=== PATIENT | male | born 1950 | race Caucasian/White ===

== ENCOUNTER 2017-10-09 12:26 | Inpatient (IN) | payer MEDICARE, MEDICAID ==
--- NOTE | 2017-10-09 12:33 | ED Physician Chart ---
ED Chief Complaint/HPI - Patient Information Date Seen:: 10/09/17 Time Seen:: 12:32 Chief Complaint:: SHORT OF BREATH WITH COUGH 3 DAYS History of Present Illness:: THIS 67-YEAR-OLD MALE HAD ONSET OF RESPIRATORY DISTRESS APPROXIMATELY 3 DAYS AGO WHICH HAS PROGRESSIVELY BECOME MORE SEVERE. PATIENT HAS A PRIOR HISTORY OF COPD ONE PRIOR EPISODE OF HOSPITALIZATION FOR THE SAME PROBLEM. THE PATIENT HAS A COUGH WHICH IS PRODUCTIVE FOR SOME SPUTUM. HE HAS NO HISTORY OF HEMOPTYSIS. HE'S HAD NO RECENT SURGERY AND NO HISTORY OF CANCER. HE DENIES ANY CHILLS BUT MAY HAVE HAD A MILD FEVER WITHIN THE PAST 3 DAYS. NO EPISODES OF DIAPHORESIS. NO ASSOCIATED CHEST PAIN. THE PATIENT HAD NOT NOTED IT BUT IS HAD SOME SWELLING IN THE RIGHT LOWER EXTREMITY. ED Review of Systems - Review of Systems General/Constitutional: No chills, Other (uncertain if the patient has had any recent fever.) Skin: No skin lesions, No rash, No bruising Head: No headache, No light-headedness Eyes: No loss of vision, No pain, No diplopia ENT: No earache, No nasal drainage, No sore throat Neck: Neck pain, No thyromegaly, No stiffness, No mass noted Cardio Vascular: Chest pain, No palpitations, No orthopnea Pulmonary: SOB, Cough, Other (NO HEMOPTYSIS.) GI: No nausea, No vomiting, No diarrhea, No pain, No melena, No constipation, No hematemesis G/U: No dysuria, No frequency, No hematuria Musculoskeletal: No bone or joint pain, No back pain Neurological: No syncope, No weakness, No headache, No seizure, No dizziness, No vertigo ED Past Medical History - Past Medical History Past Medical History: Asthma/COPD, Other (NO history of hypertension, no history of cancer, no history of DVT/PE,) Social History: Smoker (QUIT SMOKING THIS MAY.), No Drug Use, Employment:: A COUPLE OF TIMES PATIENT WORKED A [employer]. Surgical History: Appendectomy, other (PATIENT HAD ACHILLES TENDON REPAIR AFTER JUMPING OUT OF HELICOPTER DURING [place]) Family Medical History - Family Member Mother History Unknown: Yes ED Physical Exam - Physical Examination General/Constitutional: Well-developed, well-nourished, Alert, Non-toxic appearing Other Gen/Cons comments:: MODERATE DISTRESS SECONDARY TO BRONCHOSPASM Head: Atraumatic Eyes: Lids, conjuctiva normal, PERRL, EOMI Skin: Nl inspection, No rash, No skin lesions, No ecchymosis, Well hydrated, No lymphadenopathy Other Skin comments:: ALT TOENAILS WITH FUNGAL INFECTION AND THICKENED NAILS. DRY SKIN PROMINENT OVER THE DISTAL LEFT LOWER EXTREMITY INVOLVING THE ANKLE AND FOOT. ENMT: External ears, nose nl, Oropharynx nl, Tonsils nl Other ENMT comments:: EDENTULOUS Neck: Nontender, Full ROM w/o pain, No JVD (INCREASED EXERTION DUE TO BRONCHOSPASM THROUGHOUT ALL LUNG ALEXANDER. ALSO WITH RIGHT BASILAR RALES.), No nuchal rigidity, No bruit, No mass, No stridor Cardio Vascular: No murmur, gallop, rubs, NL S1 S2, Carotid/Femoral/Distal pulses equal bilaterally Other Cardio Vascular comments:: NO MURMURS GALLOPS OR RUBS WERE APPRECIATED ON AUSCULTATION BUT THIS WAS SOMEWHAT HAMPERED DUE TO NOISY BREATHING IN THE REGION OVER THE HEART. PATIENT WITH GOOD PULSES IN ALL 4 EXTREMITIES.. GI: No tenderness/rebounding/guarding, No organomegaly, No hernia, Normal BS's, Nondistended, No mass/bruits, No McBurney tenderness Other GI comments:: RECTAL EXAM DEFERRED AT MY DISCRETION. : No CVA tenderness (MILD EDEMA IN THE RIGHT LOWER EXTREMITY. NO CALF TENDERNESS. NEGATIVE HOMANS SIGN.) Extremities: Full ROM, normal strength in all extremities Neuro/Psych: Alert/oriented, Normal sensory exam, Normal motor strength, Judgement/insight normal, Mood normal, No focal deficits Misc: Normal back, No paraspinal tenderness Other Misc comments:: NO SPINAL TENDERNESS IN THE THORACIC OR LUMBAR SPINAL AREA. ED Labs/Radiology/EKG Results - Lab Results Results: SINGLE VIEW PA CHEST X-RAY: HEART SIZE UPPER LIMIT OF NORMAL. NO OBVIOUS CHF. NO AREAS OF PULMONARY CONSOLIDATION OR INFILTRATE. NO PNEUMOTHORAX. IMPRESSION : NO ACUTE CARDIOPULMONARY FINDINGS. Laboratory Results - last 24 hr 10/09/17 10/09/17 10/09/17 12:45 12:56 12:56 WBC 14.8 H RBC 3.97 Hgb 11.7 L Hct 35.0 L MCV 88.3 MCH 29.4 MCHC Differential 33.3 RDW 14.4 Plt Count 305 MPV 8.6 Neutrophils % 79.6 Lymphocytes % 10.6 L Monocytes % 8.3 Eosinophils % 0.9 Basophils % 0.6 Specimen Source Arterial Sample Site Right Radial pH 7.44 pCO2 42.0 pO2 83.0 HCO3 28.0 H Base Excess 3.9 H O2 Saturation 97.0 John Test PASS Inspired O2 35 Critical Value PW Sodium Carbon Dioxide 25.9 BUN 15 Creatinine 1.1 Est GFR ( Amer) > 60.0 Est GFR (Non-Af Amer) > 60.0 BUN/Creatinine Ratio 13.6 Glucose 144 H Whole Bld Lactic Acid Calcium 8.8 Total Bilirubin 0.7 AST 17 ALT 8 Alkaline Phosphatase 65 Troponin I B-Natriuretic Peptide Total Protein 6.8 Albumin 3.7 L Globulin 3.1 Albumin/Globulin Ratio 1.2 10/09/17 10/09/17 10/09/17 12:56 12:56 12:56 WBC RBC Hgb Hct MCV MCH MCHC Differential RDW Plt Count MPV Neutrophils % Lymphocytes % Monocytes % Eosinophils % Basophils % Specimen Source Sample Site pH pCO2 pO2 HCO3 Base Excess O2 Saturation John Test Inspired O2 Critical Value Sodium Carbon Dioxide BUN Creatinine Est GFR ( Amer) Est GFR (Non-Af Amer) BUN/Creatinine Ratio Glucose Whole Bld Lactic Acid 1.83 Calcium Total Bilirubin AST ALT Alkaline Phosphatase Troponin I 0.12 H* B-Natriuretic Peptide 482.0 H Total Protein Albumin Globulin Albumin/Globulin Ratio BNP ELEVATED AT 482. TROPONIN ELEVATED AT 0.12 WHITE COUNT ELEVATED AT 14.8 MILDLY ANEMIC AT 11.7 ABGS ON ROOM AIR WITH A PO2 OF 83 WHICH IS MILDLY DEPRESSED CO2 OF 42 WITHIN NORMAL RANGE. PH OF 7.44 WITHIN NORMAL RANGE. ULTRASOUND RIGHT LOWER EXTREMITY NEGATIVE FOR DVT. ED Assessment - Assessment General Assessment: CASE SUMMARY: THIS 67-YEAR-OLD MALE WITH A HISTORY OF COPD PRESENTS WITH A THREE -DAY HISTORY OF INCREASING DIFFICULTY BREATHING. WAS ACCOMPANIED BY A SEMI-DRY COUGH WITHOUT ASSOCIATED HEMOPTYSIS, CHILLS OR DIAPHORESIS. HE WAS INITIALLY TREATED WITH A COMBINATION OF NEBULIZED ALBUTEROL AND ATROVENT WITH MINIMAL IF ANY IMPROVEMENT. HE WAS SUBSEQUENTLY TREATED WITH SOLU-MEDROL AND PLACED ON BIPAP. HE IS BEING ADMINISTERED A SECOND COURSE OF THE ALBUTEROL/ATROVENT VIA NEBULIZED MIST. CHEST X-RAY SHOWS THE HEART AT THE UPPER LIMIT OF NORMAL IN WITH IN THE BNP IS ELEVATED WITHIN THE 400 RANGE. THE SERUM TROPONIN WAS ALSO MILDLY ELEVATED AT 0.12 AUSCULTATION OF THE HEART WAS DIFFICULT BECAUSE OF NOISY BREATHING. AT THE PRESENT TIME THE PATIENT APPEARS TO HAVE EARLY OR MILD CONGESTIVE FAILURE WITH ASSOCIATED COPD. MDM DDX DIFFICULTY BREATHING: NOT PULMONARY EMBOLUS BASED ON NEGATIVE ULTRASOUND IN THE RIGHT LOWER EXTREMITY. NOT PNEUMOTHORAX BASED ON NEGATIVE CHEST X-RAY. NOT PNEUMONIA BASED ON NEGATIVE CHEST X-RAY AND STABLE VITAL SIGNS. NOT PLEURAL EFFUSIONS DUE TO NORMAL CHEST X-RAY. PATIENT SEEMS TO HAVE A COMBINATION OF COPD EXACERBATION AND EARLY CHF. REEVALUATION: PATIENT STILL ON BIPAP AND IS MOVING AIR SIGNIFICANTLY BETTER THAN ON PAST EXAMINATION. WE'LL PROCEED WITH ADMISSION FOR CONTINUED BIPAP AND REPEAT NEBULIZED ALBUTEROL/ATROVENT IF NEEDED. RE-EVALUATION: BIPAP IN PLACE: PT'S LUNGS MUCH MORE CLEAR WITH RESOLUTION OF THE WHEEZING. MOVING AIR NORMAL - Procedures Informed Consent: Procedure/risk/benefits explained by MD: No Laceration Type:: None ED Septic Shock - . Is Septic Shock (SBP<90, OR Lactate>4 mmol\L) present?: No ED Reassessment (Disposition) - Reassessment Reassessment Condition:: Improved (markedly and) - Diagnosis Diagnosis:: MARKEDLY IMPROVED. COMBINATION OF COPD AND EARLY CHF. - Patient Disposition Discharge/Transfer:: Acute Care w/in this hosp Accepting Physician:: ANDREW AND WILL ADMIT
[2017-10-09] MEDS ORDERED: Albuterol/Ipratropium Neb 3 ML AERS HHN ONE ×4 (12:39→13:56)
[2017-10-09 12:56] LABS: pH 7.44 (7.35-7.45)
[2017-10-09 12:57] LABS: ALLEN TEST PASS
[2017-10-09 13:18] LABS: % BASOPHILS 0.6 % (0.0-2.0); % EOSINOPHILS 0.9 % (0.0-5.0); % LYMPHOCYTES 10.6 % (20.0-50.0); % MONOCYTES 8.3 % (2.0-10.0); % NEUTROPHILS 79.6 % (40.0-80.0); BASOPHILE ABSOLUTE 0.1 Th/cumm (0-0.2); EOSINOPHILE ABSOLUTE 0.1 Th/cmm (0.1-0.4); HEMOGLOBIN 11.7 gm/dL (12-16); LYMPHOCYTE ABSOLUTE 1.6 Th/cmm (1.5-3.0); MEAN CELL VOLUME 88.3 fl (80-99); MEAN CORPUSCULAR HEMOGLOBIN 29.4 pg (27.0-31.0); MEAN CORPUSCULAR HGB CONC 33.3 pg (28.0-36.0); MEAN PLATELET VOLUME 8.6 fl; MONOCYTE ABSOLUTE 1.2 Th/cmm (0.3-1.0); NEUTROPHILE ABSOLUTE 11.8 Th/cmm (1.8-8.0); PLATELET COUNT 305 Th/cmm (150-400); RED BLOOD COUNT 3.97 Mil/cmm (3.80-5.80); RED CELL DISTRIBUTION WIDTH 14.4 % (11.5-20.0)
[2017-10-09 13:19] LABS: WHITE BLOOD COUNT 14.8 Th/cmm (4.8-10.8)
--- NOTE | 2017-10-09 13:44 | Diagnostic Imaging Report ---
Portable chest x-ray HISTORY: Shortness of breath The heart size is difficult to assess with portable technique in a poor inspiration, but appears somewhat generous. No focal pulmonary processes. No hilar or mediastinal abnormalities. IMPRESSION: 1. No acute abnormalities 2. Suggestion of a somewhat generous overall heart size.
[2017-10-09 13:56] LABS: ALB/GLOB RATIO 1.2 (1.0-1.8); ALBUMIN 3.7 gm/dL (4.2-5.5); ALKALINE PHOSPHATASE 65 U/L (34-104); BILIRUBIN,TOTAL 0.7 mg/dL (0.3-1.0); BUN - UREA NITROGEN 15 mg/dL (7-25); CALCIUM SERUM 8.8 mg/dL (8.6-10.3); CARBON DIOXIDE 25.9 mEq/L (21.0-31.0); CREATININE - SERUM 1.1 mg/dL (0.7-1.3); GFR AFRICAN-AMERICAN > 60.0 ml/min (>90); GFR NON AFRICAN-AMERICAN > 60.0 ml/min; GLUCOSE 144 mg/dL (70-105); SGOT 17 U/L (13-39); SGPT/ALT 8 U/L (7-52); TOTAL PROTEIN,SERUM 6.8 gm/dL (6.0-8.3)
--- NOTE | 2017-10-09 14:12 | Diagnostic Imaging Report ---
Right lower extremity Doppler venous ultrasound exam HISTORY: Pain/swelling Sonographic sector images were obtained through the deep venous systems of the right leg. Associated Doppler data was obtained. The exam demonstrates patency of the common femoral, superficial femoral, popliteal, and posterior tibial veins. Specifically, no thrombus is seen. There are normal compressibility and augmentation responses. IMPRESSION: Negative exam for deep vein thrombophlebitis.
[2017-10-09] MEDS ORDERED: Albuterol/Ipratropium Neb 3 ML AERS HHN PRN (14:38)
[2017-10-09 16:01] LABS: ANION GAP 14.3 (7.0-16.0); CHLORIDE 98 mEq/L (98-107); POTASSIUM SERUM 3.2 mEq/L (3.5-5.1)
[2017-10-09] MEDS: Albuterol/Ipratropium Neb 3 ML AERS HHN SCH (19:51)
[2017-10-09] MEDS ORDERED: Potassium Chloride 20 mEq ER Tab PO ONE (20:12)
[2017-10-09] MEDS: cefTRIAXone 1 GM in Sodium Chloride 0.9% 50 ML IV SCH (20:36)
[2017-10-09] MEDS: methylPREDNISolone SS 40 mg Vial IVP SCH (20:53)
[2017-10-09] MEDS: Enoxaparin 40 mg/0.4 mL 0.4mL Syr SUBQ SCH (20:57)
[2017-10-09] MEDS: Azithromycin 500 MG in Sodium Chloride 0.9% 250 ML IV SCH (21:12)
[2017-10-10] MEDS: Albuterol/Ipratropium Neb 3 ML AERS HHN SCH ×4 (00:49→19:17)
[2017-10-10] MEDS: methylPREDNISolone SS 40 mg Vial IVP SCH ×5 (03:31→20:25)
[2017-10-10 04:37] LABS: % BASOPHILS 0.3 % (0.0-2.0); % EOSINOPHILS 0.2 % (0.0-5.0); % MONOCYTES 1.6 % (2.0-10.0); % NEUTROPHILS 88.9 % (40.0-80.0); HEMATOCRIT 34.3 % (41.0-60); HEMOGLOBIN 11.7 gm/dL (12-16); LYMPHOCYTE ABSOLUTE 1.4 Th/cmm (1.5-3.0); MEAN CELL VOLUME 87.7 fl (80-99); MEAN CORPUSCULAR HGB CONC 34.2 pg (28.0-36.0); MEAN PLATELET VOLUME 8.7 fl; MONOCYTE ABSOLUTE 0.3 Th/cmm (0.3-1.0); NEUTROPHILE ABSOLUTE 14.2 Th/cmm (1.8-8.0); PLATELET COUNT 325 Th/cmm (150-400); RED BLOOD COUNT 3.91 Mil/cmm (3.80-5.80); RED CELL DISTRIBUTION WIDTH 14.4 % (11.5-20.0)
[2017-10-10 04:44] LABS: WHITE BLOOD COUNT 15.9 Th/cmm (4.8-10.8)
[2017-10-10 05:01] LABS: ANION GAP 12.6 (7.0-16.0); BUN - UREA NITROGEN 24 mg/dL (7-25); CALCIUM SERUM 8.6 mg/dL (8.6-10.3); CARBON DIOXIDE 23.7 mEq/L (21.0-31.0); CHLORIDE 101 mEq/L (98-107); CREATININE - SERUM 1.2 mg/dL (0.7-1.3); GFR AFRICAN-AMERICAN > 60.0 ml/min (>90); GFR NON AFRICAN-AMERICAN > 60.0 ml/min; POTASSIUM SERUM 3.3 mEq/L (3.5-5.1); SODIUM SERUM 134 mEq/L (136-145)
--- NOTE | 2017-10-10 07:08 | History & Physical ---
ADMIT DATE: 10/09/2017 CHIEF COMPLAINT: Shortness of breath. HISTORY OF PRESENT ILLNESS: The patient is a 67-year-old male with underlying history of COPD, who was brought into the Emergency Room with evaluation of shortness of breath for the past few days. The patient while at the Emergency Room was diagnosed with acute COPD exacerbation associated with tracheobronchitis and subsequently admitted to the hospital for further evaluation and treatment. The patient denies any associated chest pain. No dizziness, no palpitation, no diaphoresis or any leg pain or leg cramps. PAST MEDICAL HISTORY: COPD. PAST SURGICAL HISTORY: Had Achilles tendon surgery in the past. FAMILY HISTORY: Denies. SOCIAL HISTORY: Lives at home with brother, ex-smoker, quit smoking several months ago. Denies any alcohol or street drug use. CURRENT MEDICATIONS: Per medication reconciliation. ALLERGIES: No known drug allergies. REVIEW OF SYSTEMS: Denies any fever. No chills, no complaint of cough and shortness of breath. No chest pain, no dizziness, no palpitation, no diaphoresis, no dizziness. No nausea, no vomiting, no abdominal pain. No headache, no double vision, no trouble speech. No dysuria, no hematuria or any other complaints. PHYSICAL EXAMINATION: VITAL SIGNS: Temperature 98.2, pulse 75, respirations 20, blood pressure 150/67, and 93% with 2 liters nasal cannula. HEART: S1, S2 normal. LUNGS: Bilateral expiratory wheezing noted. ABDOMEN: Soft, nontender. NEUROLOGIC: Alert and awake, follows command. EXTREMITIES: +2 pitting edema noted, onychomycosis noted. AVAILABLE LABORATORY DATA: WBC 14.8, hemoglobin 11.7, hematocrit 30.10, platelets 305. His pH is 7.44, pO2 of 83. BUN 50, creatinine 1.1, sugar is 144. Lactic acid 1.8, troponin 0.12. BNP 482. Chest x-ray is negative for any infiltrates. ASSESSMENT: 1. Acute chronic obstructive pulmonary disease exacerbation. 2. Hypertension. 3. Obesity. 4. ____ onychomycosis. PLAN: The patient will be admitted to med/surg floor, started on frequent bronchodilators treatment and oxygen support, IV Solu-Medrol, IV Rocephin, Zithromax. Pulmonology was consulted. Lovenox for DVT prophylaxis. Cardiology consult, serial troponins, obtain echocardiogram of the heart. We will follow up ____. The patient's condition and plan of care discussed with the nursing staff. JOB# [id number]
[2017-10-10] MEDS: Enoxaparin 40 mg/0.4 mL 0.4mL Syr SUBQ SCH (09:16)
[2017-10-10] MEDS ORDERED: Potassium Chloride 20 mEq ER Tab PO ONE (09:30)
[2017-10-10] MEDS: Guaifenesin DM 10 ML UDC PO PRN (11:06)
[2017-10-10 14:13] LABS: GLUCOSE 260 mg/dL (70-105)
[2017-10-10] MEDS: cefTRIAXone 1 GM in Sodium Chloride 0.9% 50 ML IV SCH (15:08)
[2017-10-10] MEDS: Azithromycin 500 MG in Sodium Chloride 0.9% 250 ML IV SCH (16:49)
--- NOTE | 2017-10-10 17:37 | Consultation ---
DATE OF CONSULTATION: 10/09/[address] Ann. Thank you very much, Dr. Ann for this consultation. HISTORY OF PRESENT ILLNESS: The patient is a 67-year-old male with history of COPD, presented with acute shortness of breath, congestion and cough. The patient was admitted for further treatment and management. The patient is on a Ventimask. He said he has inhalers, but he has not been using them. He said he has run out of them. He is feeling a little bit better, still having some cough and congestion. SOCIAL HISTORY: Smoking, some age of 17 about a pack to 2 packs a day and quit last May. He also has history of smoking marijuana and doing cocaine in the 70s. REVIEW OF SYSTEMS: GENERAL: No weakness or fatigue. CARDIOVASCULAR: No chest pain or palpation. RESPIRATORY: Shortness of breath, cough, congestion. GASTROINTESTINAL: No nausea or vomiting. PHYSICAL EXAMINATION: GENERAL: Awake, alert, not in acute distress. VITAL SIGNS: Temperature is 97.8, pulse is 74, respiration 20, blood pressure 140/72, saturation ____%. HEENT: Atraumatic, normocephalic. Pupils are equal and reactive to light and accommodation. Ears, nose and throat normal. NECK: Supple. No JVD. CHEST: There is rhonchi and wheezing bilaterally. HEART: Regular rhythm. ABDOMEN: Soft. EXTREMITIES: No edema. LABORATORY DATA: WBC 14.8, hemoglobin 11.7, platelets is 305. ABGs: pH 7.44, pCO2 of 42, pO2 83, bicarbonate 28, saturation 97%. Sodium, value not available, potassium 3.2, BUN 15, creatinine 1.1. Troponin 0.12. Chest x-ray: No acute infiltrate. IMPRESSION: This is a 67-year-old male with: 1. Acute chronic obstructive pulmonary disease exacerbation. 2. Acute respiratory failure. 3. Acute bronchitis. 4. Possible obstructive sleep apnea syndrome. PLAN: 1. Nebulizer treatment. 2. IV antibiotics. 3. IV Solu-Medrol, oxygen supplementation, titrate as tolerated. Thank you very much for this consultation. We will follow the patient with you. JOB# [id number]
[2017-10-10 17:55] LABS: A1C % 5.2 % (4.0-6.0)
[2017-10-11] MEDS: Albuterol/Ipratropium Neb 3 ML AERS HHN SCH ×4 (01:42→19:12)
[2017-10-11] MEDS: methylPREDNISolone SS 40 mg Vial IVP SCH ×4 (03:13→22:06)
--- NOTE | 2017-10-11 04:46 | Consultation ---
DATE OF CONSULTATION: 10/10/2017 HISTORY OF PRESENT ILLNESS: This 67-year-old male was seen and examined at the courtesy of Dr. Ann. The patient was admitted through Emergency Room, he was brought to the Emergency Room with a history of shortness of breath, respiratory distress, where he was evaluated and then admitted. The patient does have a history of COPD. He was found to be in COPD with acute exacerbation and tracheobronchitis. He was also found to have slightly elevated troponin level. He does have a history of hypertension, history of COPD, and history of gout. The patient denies any history of chest pains. No history of dizziness. No history of syncope, no history of seizures. No history of hemoptysis. No history of abdominal pain. No history of nausea, vomiting. No history of hematemesis. No history of melena, no history of bleeding per rectum. No history of change in bowel habits. No history of swelling over the legs. No history of intermittent claudications or phlebitis. PAST MEDICAL HISTORY: Usual childhood diseases. No history of rheumatic fever. No history of scarlet fever. Other past history as mentioned above. FAMILY HISTORY: Not significant. SOCIAL HISTORY: Not smoking or drinking. PHYSICAL EXAMINATION: VITAL SIGNS: Heart rate was 74, blood pressure was 128/58, temperature 98.2, respirations 18, O2 saturation 96%. SKIN: Normal. HEAD: Normocephalic. EYES: Conjunctivae were pink. There was no icterus in the eyes. Pupils reacting to light. NECK: There was no increased jugular venous distention, no thyromegaly, no lymphadenopathy. Carotids equal both sides. CHEST: Bilaterally symmetrical, moved well with respiration. Respiratory movements equal both sides. Trachea was central. There was note to percussion. Breath sounds, few rales and rhonchi. CARDIOVASCULAR SYSTEM: PMI not well localized. There was no pulsation or thrill. No parasternal heave. S1 normal, S2 physiologic. There was no S3, no rub. ABDOMEN: Soft. No tenderness, no rigidity, no guarding, no organomegaly. Bowel sounds normal. EXTREMITIES: No calf tenderness. Peripheral pulses slightly diminished. LABORATORY AND DIAGNOSTIC DATA: On reviewing the lab; glucose of 154, BUN 15, creatinine 1.1, calcium 8.8, albumin 3.7, globulin 3.1, bilirubin 1.2, AST 17, ALT 8, alkaline phosphatase 65. Blood gases; pH was 7.44, pCO2 of 42, pO2 of 83. WBC was 14.8, hemoglobin 11.7, hematocrit 35.0. BNP was 482.0. Troponin level was 0.12, then 0.08, then 0.06, then 0.05. Lactic acid 1.83. Chest x-ray showed generalized overall heart size, no acute abnormalities. On venous Doppler study, there was no DVT. Echocardiogram was done which revealed ejection fraction to be 50%. Right ventricular systolic pressure was 52 consistent with a [id number] pulmonary hypertension. There was no pericardial effusion. There was calcified mitral valve and aortic wall, left atrial enlargement, right atrial enlargement, some TR and MR, tricuspid insufficiency and mitral insufficiency, aortic valve area was 2.99. EKG has not been done, we will order an EKG. IMPRESSION AND RECOMMENDATIONS: Shortness of breath, respiratory distress, chronic obstructive pulmonary disease with acute exacerbation, possible tracheobronchitis, leukocytosis, elevated troponin level, doubt acute myocardial infarction, hypertension, history of gout, mild pulmonary hypertension, left ventricular hypertrophy, calcified mitral and aortic valve, left atrial enlargement, right atrial enlargement, mitral insufficiency, and tricuspid insufficiency. As the patient is already on Lovenox, Zithromax, Rocephin, and Solu-Medrol, we will add Lipitor 10 mg, aspirin, and Protonix. We will get lipid profile in the morning, TSH, and EKGs. Will follow with you as needed. JOB# [id number]
--- NOTE | 2017-10-11 06:46 | General Progress Note ---
Subjective - Review of Systems Service Date: 10/10/17 Subjective: Late entry: Patient seen and examined. c/o cough afebrile sob better Objective - Results Result Diagrams: 10/10/17 04:25 10/10/17 04:25 Recent Labs: Laboratory Last Values WBC 15.9 Th/cmm (4.8-10.8) H 10/10/17 04:25 RBC 3.91 Mil/cmm (3.80-5.80) 10/10/17 04:25 Hgb 11.7 gm/dL (12-16) L 10/10/17 04:25 Hct 34.3 % (41.0-60) L 10/10/17 04:25 MCV 87.7 fl (80-99) 10/10/17 04:25 MCH 30.0 pg (27.0-31.0) 10/10/17 04:25 MCHC Differential 34.2 pg (28.0-36.0) 10/10/17 04:25 RDW 14.4 % (11.5-20.0) 10/10/17 04:25 Plt Count 325 Th/cmm (150-400) 10/10/17 04:25 MPV 8.7 fl 10/10/17 04:25 Neutrophils % 88.9 % (40.0-80.0) H 10/10/17 04:25 Lymphocytes % 9.0 % (20.0-50.0) L 10/10/17 04:25 Monocytes % 1.6 % (2.0-10.0) L 10/10/17 04:25 Eosinophils % 0.2 % (0.0-5.0) 10/10/17 04:25 Basophils % 0.3 % (0.0-2.0) 10/10/17 04:25 Specimen Source Arterial 10/09/17 12:45 Sample Site Right Radial 10/09/17 12:45 pH 7.44 (7.35-7.45) 10/09/17 12:45 pCO2 42.0 mmHg (35.0-45.0) 10/09/17 12:45 pO2 83.0 mmHg (80.0-100.0) 10/09/17 12:45 HCO3 28.0 mEq/L (20.0-26.0) H 10/09/17 12:45 Base Excess 3.9 mEq/L (-3.0-3.0) H 10/09/17 12:45 O2 Saturation 97.0 % (92.0-100.0) 10/09/17 12:45 John Test PASS 10/09/17 12:45 Inspired O2 35 10/09/17 12:45 Critical Value PW 10/09/17 12:45 Sodium 134 mEq/L (136-145) L 10/10/17 04:25 Potassium 3.3 mEq/L (3.5-5.1) L 10/10/17 04:25 Chloride 101 mEq/L (98-107) 10/10/17 04:25 Carbon Dioxide 23.7 mEq/L (21.0-31.0) 10/10/17 04:25 Anion Gap 12.6 (7.0-16.0) 10/10/17 04:25 BUN 24 mg/dL (7-25) 10/10/17 04:25 Creatinine 1.2 mg/dL (0.7-1.3) 10/10/17 04:25 Est GFR ( Amer) > 60.0 ml/min (>90) 10/10/17 04:25 Est GFR (Non-Af Amer) > 60.0 ml/min 10/10/17 04:25 BUN/Creatinine Ratio 20.0 10/10/17 04:25 Glucose 260 mg/dL (70-105) H D 10/10/17 04:25 Hemoglobin A1c % 5.2 % (4.0-6.0) 10/10/17 04:25 Whole Bld Lactic Acid 1.83 mmol/L (0.60-1.99) 10/09/17 12:56 Calcium 8.6 mg/dL (8.6-10.3) 10/10/17 04:25 Total Bilirubin 0.7 mg/dL (0.3-1.0) 10/09/17 12:56 AST 17 U/L (13-39) 10/09/17 12:56 ALT 8 U/L (7-52) 10/09/17 12:56 Alkaline Phosphatase 65 U/L (34-104) 10/09/17 12:56 Troponin I 0.05 ng/mL (0.01-0.05) 10/10/17 12:15 B-Natriuretic Peptide 482.0 pg/mL (5.0-100.0) H 10/09/17 12:56 Total Protein 6.8 gm/dL (6.0-8.3) 10/09/17 12:56 Albumin 3.7 gm/dL (4.2-5.5) L 10/09/17 12:56 Globulin 3.1 gm/dL 10/09/17 12:56 Albumin/Globulin Ratio 1.2 (1.0-1.8) 10/09/17 12:56 - Physical Exam Vitals and I&O: Vital Signs Temp 98.3 F 10/11/17 00:00 Pulse 86 10/11/17 01:42 Resp 20 10/11/17 01:42 BP 128/58 10/11/17 00:00 Pulse Ox 93 10/11/17 01:42 Intake & Output 10/10/17 10/10/17 10/11/17 06:59 18:59 06:59 Intake Total 500 700 200 Balance 500 700 200 Weight (lbs) 122.016 kg 122.016 kg 122.243 kg Intake: Intake, IV Amount 300 Azithromycin 500 mg In 250 Sodium Chloride 0.9% 250 ml @ 250 mls/hr IV Q24H [facility] Rx#:[id number] cefTRIAXone 1 gm In 50 Sodium Chloride 0.9% 50 ml @ 100 mls/hr IV Q24HR [facility] Rx#:[id number] Oral 200 700 200 Other: # Voids 1 3 4 # Bowel Movements 0 1 Weight Source Bedscale Bedscale Bedscale Active Medications: Current Medications Albuterol/Ipratropium (Duoneb Neb) 3 ml HHN Q2H PRN PRN Reason: Shortness of Breath or Wheeze Stop: 12/08/17 14:44 Last Admin: 10/09/17 22:40 Dose: 3 ml Albuterol/Ipratropium (Duoneb Neb) 3 ml HHN Q6HRT [facility] Stop: 12/08/17 18:59 Last Admin: 10/11/17 01:42 Dose: 3 ml Aspirin (Aspirin Chewable) 81 mg PO DAILY [facility] Stop: 12/10/17 08:59 Atorvastatin Calcium (Lipitor) 10 mg PO DAILY [facility] PRN Reason: Protocol Stop: 12/10/17 08:59 Enoxaparin Sodium (Lovenox) 40 mg SUBQ DAILY [facility] Stop: 12/08/17 20:29 Last Admin: 10/10/17 09:16 Dose: 40 mg Guaifenesin/Dextromethorphan (Robitussin Dm) 10 ml PO Q4H PRN PRN Reason: Cough Stop: 12/09/17 09:10 Last Admin: 10/10/17 11:06 Dose: 10 ml Azithromycin 500 mg/ Sodium (Chloride) 250 mls @ 250 mls/hr IV Q24H [facility] Stop: 12/08/17 16:59 Last Admin: 10/10/17 16:49 Dose: 250 mls/hr Ceftriaxone Sodium 1 gm/ (Sodium Chloride) 50 mls @ 100 mls/hr IV Q24HR [facility] Stop: 12/08/17 15:59 Last Admin: 10/10/17 15:08 Dose: 100 mls/hr Methylprednisolone Sodium Succinate (Solu-Medrol) 40 mg IVP Q6H [facility] Stop: 12/08/17 14:59 Last Admin: 10/11/17 03:13 Dose: 40 mg Mupirocin (Bactroban Oint) 1 appl NS BID [facility] Stop: 10/15/17 17:01 Pantoprazole Sodium (Protonix) 40 mg PO DAILY [facility] Stop: 12/10/17 08:59 General: Alert Cardiovascular: Regular rate Lungs: Other (rales) Assessment/Plan - Problem List Patient Problems: All Active Problems SEVERE DYSPNEA (Acute) - Assessment Assessment: Acute COPD exacerbation Elevated troponin r/o ACS Hyperlipidemia Obesity - Plan Plan: Continue Rocephine Solumedrol Bronchodilator Oxygen DVT prophylaxis PT OT
[2017-10-11 07:53] LABS: CHOLESTEROL 196 mg/dL (<200); HDL -HIGH DENSITY LIPOPROTEIN 28 mg/dL (23-92); TRIGLYCERIDES 176 mg/dL (<150)
[2017-10-11] MEDS ORDERED: Probiotic Screen MC PRN (08:30)
[2017-10-11] MEDS: Enoxaparin 40 mg/0.4 mL 0.4mL Syr SUBQ SCH (09:30)
[2017-10-11] MEDS: Lactobacillus Rhamnosus GG 15 Billion CFU CAP.SPRINK PO SCH (09:30)
[2017-10-11] MEDS: Pantoprazole 40 mg EC Tab PO SCH (09:31)
[2017-10-11] MEDS: Aspirin 81mg Chewable Tab PO SCH (09:31)
[2017-10-11] MEDS: Atorvastatin Calcium 10 MG TAB PO SCH (11:00)
[2017-10-11] MEDS: Guaifenesin DM 10 ML UDC PO PRN ×2 (11:02→20:38)
[2017-10-11] MEDS: cefTRIAXone 1 GM in Sodium Chloride 0.9% 50 ML IV SCH (16:00)
[2017-10-11] MEDS: Azithromycin 500 MG in Sodium Chloride 0.9% 250 ML IV SCH (17:59)
--- NOTE | 2017-10-11 21:15 | General Progress Note ---
Subjective - Review of Systems Service Date: 10/11/17 Subjective: L Patient seen and examined. no new concern reported Objective - Results Result Diagrams: 10/10/17 04:25 10/10/17 04:25 Recent Labs: Laboratory Last Values WBC 15.9 Th/cmm (4.8-10.8) H 10/10/17 04:25 RBC 3.91 Mil/cmm (3.80-5.80) 10/10/17 04:25 Hgb 11.7 gm/dL (12-16) L 10/10/17 04:25 Hct 34.3 % (41.0-60) L 10/10/17 04:25 MCV 87.7 fl (80-99) 10/10/17 04:25 MCH 30.0 pg (27.0-31.0) 10/10/17 04:25 MCHC Differential 34.2 pg (28.0-36.0) 10/10/17 04:25 RDW 14.4 % (11.5-20.0) 10/10/17 04:25 Plt Count 325 Th/cmm (150-400) 10/10/17 04:25 MPV 8.7 fl 10/10/17 04:25 Neutrophils % 88.9 % (40.0-80.0) H 10/10/17 04:25 Lymphocytes % 9.0 % (20.0-50.0) L 10/10/17 04:25 Monocytes % 1.6 % (2.0-10.0) L 10/10/17 04:25 Eosinophils % 0.2 % (0.0-5.0) 10/10/17 04:25 Basophils % 0.3 % (0.0-2.0) 10/10/17 04:25 Specimen Source Arterial 10/09/17 12:45 Sample Site Right Radial 10/09/17 12:45 pH 7.44 (7.35-7.45) 10/09/17 12:45 pCO2 42.0 mmHg (35.0-45.0) 10/09/17 12:45 pO2 83.0 mmHg (80.0-100.0) 10/09/17 12:45 HCO3 28.0 mEq/L (20.0-26.0) H 10/09/17 12:45 Base Excess 3.9 mEq/L (-3.0-3.0) H 10/09/17 12:45 O2 Saturation 97.0 % (92.0-100.0) 10/09/17 12:45 John Test PASS 10/09/17 12:45 Inspired O2 35 10/09/17 12:45 Critical Value PW 10/09/17 12:45 Sodium 134 mEq/L (136-145) L 10/10/17 04:25 Potassium 3.3 mEq/L (3.5-5.1) L 10/10/17 04:25 Chloride 101 mEq/L (98-107) 10/10/17 04:25 Carbon Dioxide 23.7 mEq/L (21.0-31.0) 10/10/17 04:25 Anion Gap 12.6 (7.0-16.0) 10/10/17 04:25 BUN 24 mg/dL (7-25) 10/10/17 04:25 Creatinine 1.2 mg/dL (0.7-1.3) 10/10/17 04:25 Est GFR ( Amer) > 60.0 ml/min (>90) 10/10/17 04:25 Est GFR (Non-Af Amer) > 60.0 ml/min 10/10/17 04:25 BUN/Creatinine Ratio 20.0 10/10/17 04:25 Glucose 260 mg/dL (70-105) H D 10/10/17 04:25 Hemoglobin A1c % 5.2 % (4.0-6.0) 10/10/17 04:25 Whole Bld Lactic Acid 1.83 mmol/L (0.60-1.99) 10/09/17 12:56 Calcium 8.6 mg/dL (8.6-10.3) 10/10/17 04:25 Total Bilirubin 0.7 mg/dL (0.3-1.0) 10/09/17 12:56 AST 17 U/L (13-39) 10/09/17 12:56 ALT 8 U/L (7-52) 10/09/17 12:56 Alkaline Phosphatase 65 U/L (34-104) 10/09/17 12:56 Troponin I 0.05 ng/mL (0.01-0.05) 10/10/17 12:15 B-Natriuretic Peptide 482.0 pg/mL (5.0-100.0) H 10/09/17 12:56 Total Protein 6.8 gm/dL (6.0-8.3) 10/09/17 12:56 Albumin 3.7 gm/dL (4.2-5.5) L 10/09/17 12:56 Globulin 3.1 gm/dL 10/09/17 12:56 Albumin/Globulin Ratio 1.2 (1.0-1.8) 10/09/17 12:56 Triglycerides 176 mg/dL (<150) H 10/11/17 06:50 Cholesterol 196 mg/dL (<200) 10/11/17 06:50 LDL Cholesterol Direct 144 mg/dL (75-193) 10/11/17 06:50 HDL Cholesterol 28 mg/dL (23-92) 10/11/17 06:50 TSH 0.37 uIU/ml (0.34-5.60) 10/11/17 06:50 - Physical Exam Vitals and I&O: Vital Signs Temp 98.5 F 10/11/17 15:42 Pulse 82 10/11/17 19:15 Resp 20 10/11/17 19:15 BP 132/62 10/11/17 15:42 Pulse Ox 94 10/11/17 19:15 Intake & Output 10/11/17 10/11/17 10/12/17 06:59 18:59 06:59 Intake Total 200 400 Output Total 1 Balance 200 399 Weight (lbs) 122.243 kg 122.016 kg Intake: Oral 200 400 Output: Stool 1 Other: # Voids 4 3 Weight Source Bedscale Bedscale Active Medications: Current Medications Albuterol/Ipratropium (Duoneb Neb) 3 ml HHN Q2H PRN PRN Reason: Shortness of Breath or Wheeze Stop: 12/08/17 14:44 Last Admin: 10/09/17 22:40 Dose: 3 ml Albuterol/Ipratropium (Duoneb Neb) 3 ml HHN Q6HRT [facility] Stop: 12/08/17 18:59 Last Admin: 10/11/17 19:12 Dose: 3 ml Aspirin (Aspirin Chewable) 81 mg PO DAILY [facility] Stop: 12/10/17 08:59 Last Admin: 10/11/17 09:31 Dose: 81 mg Atorvastatin Calcium (Lipitor) 10 mg PO DAILY [facility] PRN Reason: Protocol Stop: 12/10/17 08:59 Last Admin: 10/11/17 11:00 Dose: 10 mg Enoxaparin Sodium (Lovenox) 40 mg SUBQ DAILY [facility] Stop: 12/08/17 20:29 Last Admin: 10/11/17 09:30 Dose: 40 mg Guaifenesin/Dextromethorphan (Robitussin Dm) 10 ml PO Q4H PRN PRN Reason: Cough Stop: 12/09/17 09:10 Last Admin: 10/11/17 20:38 Dose: 10 ml Azithromycin 500 mg/ Sodium (Chloride) 250 mls @ 250 mls/hr IV Q24H [facility] Stop: 12/08/17 16:59 Last Admin: 10/11/17 17:59 Dose: 250 mls/hr Ceftriaxone Sodium 1 gm/ (Sodium Chloride) 50 mls @ 100 mls/hr IV Q24HR [facility] Stop: 12/08/17 15:59 Last Admin: 10/11/17 16:00 Dose: 100 mls/hr Lactobacillus Rhamnosus (Culturelle 15b) 1 each PO DAILY [facility] Stop: 12/10/17 08:59 Last Admin: 10/11/17 09:30 Dose: 1 each Methylprednisolone Sodium Succinate (Solu-Medrol) 40 mg IVP Q8H [facility] Stop: 12/10/17 13:59 Last Admin: 10/11/17 14:51 Dose: 40 mg Miscellaneous (Probiotic Screen) 1 ea [facility] PRN PRN PRN Reason: PROTOCOL Stop: 12/10/17 08:29 Mupirocin (Bactroban Oint) 1 appl NS BID [facility] Stop: 10/15/17 17:01 Last Admin: 10/11/17 17:30 Dose: 1 appl Pantoprazole Sodium (Protonix) 40 mg PO DAILY [facility] Stop: 12/10/17 08:59 Last Admin: 10/11/17 09:31 Dose: 40 mg General: Alert Cardiovascular: Regular rate Lungs: Other (rales) Assessment/Plan - Problem List Patient Problems: All Active Problems SEVERE DYSPNEA (Acute) - Assessment Assessment: Acute COPD exacerbation Elevated troponin r/o ACS Hyperlipidemia Obesity - Plan Plan: Continue Rocephine Solumedrol Bronchodilator Oxygen DVT prophylaxis PT OT
[2017-10-12] MEDS: Albuterol/Ipratropium Neb 3 ML AERS HHN SCH ×4 (00:33→19:12)
[2017-10-12] MEDS: Guaifenesin DM 10 ML UDC PO PRN ×4 (03:39→21:02)
[2017-10-12] MEDS: methylPREDNISolone SS 40 mg Vial IVP SCH ×3 (05:44→14:17)
[2017-10-12 07:04] LABS: ANION GAP 13.1 (7.0-16.0); BUN - UREA NITROGEN 23 mg/dL (7-25); CALCIUM SERUM 8.5 mg/dL (8.6-10.3); CARBON DIOXIDE 25.4 mEq/L (21.0-31.0); CHLORIDE 101 mEq/L (98-107); GFR AFRICAN-AMERICAN > 60.0 ml/min (>90); GFR NON AFRICAN-AMERICAN > 60.0 ml/min; GLUCOSE 249 mg/dL (70-105); POTASSIUM SERUM 3.5 mEq/L (3.5-5.1); SODIUM SERUM 136 mEq/L (136-145)
[2017-10-12] MEDS: Enoxaparin 40 mg/0.4 mL 0.4mL Syr SUBQ SCH (09:03)
[2017-10-12] MEDS: Atorvastatin Calcium 10 MG TAB PO SCH (09:04)
[2017-10-12] MEDS: Pantoprazole 40 mg EC Tab PO SCH (09:04)
[2017-10-12] MEDS: Aspirin 81mg Chewable Tab PO SCH (09:04)
[2017-10-12] MEDS: Lactobacillus Rhamnosus GG 15 Billion CFU CAP.SPRINK PO SCH (09:04)
[2017-10-12 09:35] LABS: INR 1.07 (0.5-1.4); PROTHROMBIN TIME (TEST) 11.1 SECONDS (9.5-11.5)
[2017-10-12] MEDS: cefTRIAXone 1 GM in Sodium Chloride 0.9% 50 ML IV SCH (16:13)
[2017-10-12] MEDS: Azithromycin 500 MG in Sodium Chloride 0.9% 250 ML IV SCH (16:48)
--- NOTE | 2017-10-12 17:37 | General Progress Note ---
Subjective - Review of Systems Service Date: 10/12/17 Subjective: L Patient seen and examined still cough breathing better Objective - Results Result Diagrams: 10/10/17 04:25 10/12/17 06:30 Recent Labs: Laboratory Last Values WBC 15.9 Th/cmm (4.8-10.8) H 10/10/17 04:25 RBC 3.91 Mil/cmm (3.80-5.80) 10/10/17 04:25 Hgb 11.7 gm/dL (12-16) L 10/10/17 04:25 Hct 34.3 % (41.0-60) L 10/10/17 04:25 MCV 87.7 fl (80-99) 10/10/17 04:25 MCH 30.0 pg (27.0-31.0) 10/10/17 04:25 MCHC Differential 34.2 pg (28.0-36.0) 10/10/17 04:25 RDW 14.4 % (11.5-20.0) 10/10/17 04:25 Plt Count 325 Th/cmm (150-400) 10/10/17 04:25 MPV 8.7 fl 10/10/17 04:25 Neutrophils % 88.9 % (40.0-80.0) H 10/10/17 04:25 Lymphocytes % 9.0 % (20.0-50.0) L 10/10/17 04:25 Monocytes % 1.6 % (2.0-10.0) L 10/10/17 04:25 Eosinophils % 0.2 % (0.0-5.0) 10/10/17 04:25 Basophils % 0.3 % (0.0-2.0) 10/10/17 04:25 PT 11.1 SECONDS (9.5-11.5) 10/12/17 09:15 INR 1.07 (0.5-1.4) 10/12/17 09:15 Specimen Source Arterial 10/09/17 12:45 Sample Site Right Radial 10/09/17 12:45 pH 7.44 (7.35-7.45) 10/09/17 12:45 pCO2 42.0 mmHg (35.0-45.0) 10/09/17 12:45 pO2 83.0 mmHg (80.0-100.0) 10/09/17 12:45 HCO3 28.0 mEq/L (20.0-26.0) H 10/09/17 12:45 Base Excess 3.9 mEq/L (-3.0-3.0) H 10/09/17 12:45 O2 Saturation 97.0 % (92.0-100.0) 10/09/17 12:45 John Test PASS 10/09/17 12:45 Inspired O2 35 10/09/17 12:45 Critical Value PW 10/09/17 12:45 Sodium 136 mEq/L (136-145) 10/12/17 06:30 Potassium 3.5 mEq/L (3.5-5.1) 10/12/17 06:30 Chloride 101 mEq/L (98-107) 10/12/17 06:30 Carbon Dioxide 25.4 mEq/L (21.0-31.0) 10/12/17 06:30 Anion Gap 13.1 (7.0-16.0) 10/12/17 06:30 BUN 23 mg/dL (7-25) 10/12/17 06:30 Creatinine 1.0 mg/dL (0.7-1.3) 10/12/17 06:30 Est GFR ( Amer) > 60.0 ml/min (>90) 10/12/17 06:30 Est GFR (Non-Af Amer) > 60.0 ml/min 10/12/17 06:30 BUN/Creatinine Ratio 23.0 10/12/17 06:30 Glucose 249 mg/dL (70-105) H 10/12/17 06:30 Hemoglobin A1c % 5.2 % (4.0-6.0) 10/10/17 04:25 Whole Bld Lactic Acid 1.83 mmol/L (0.60-1.99) 10/09/17 12:56 Calcium 8.5 mg/dL (8.6-10.3) L 10/12/17 06:30 Total Bilirubin 0.7 mg/dL (0.3-1.0) 10/09/17 12:56 AST 17 U/L (13-39) 10/09/17 12:56 ALT 8 U/L (7-52) 10/09/17 12:56 Alkaline Phosphatase 65 U/L (34-104) 10/09/17 12:56 Troponin I 0.05 ng/mL (0.01-0.05) 10/10/17 12:15 B-Natriuretic Peptide 482.0 pg/mL (5.0-100.0) H 10/09/17 12:56 Total Protein 6.8 gm/dL (6.0-8.3) 10/09/17 12:56 Albumin 3.7 gm/dL (4.2-5.5) L 10/09/17 12:56 Globulin 3.1 gm/dL 10/09/17 12:56 Albumin/Globulin Ratio 1.2 (1.0-1.8) 10/09/17 12:56 Triglycerides 176 mg/dL (<150) H 10/11/17 06:50 Cholesterol 196 mg/dL (<200) 10/11/17 06:50 LDL Cholesterol Direct 144 mg/dL (75-193) 10/11/17 06:50 HDL Cholesterol 28 mg/dL (23-92) 10/11/17 06:50 TSH 0.37 uIU/ml (0.34-5.60) 10/11/17 06:50 - Physical Exam Vitals and I&O: Vital Signs Temp 97.4 F 10/12/17 16:40 Pulse 78 10/12/17 16:40 Resp 20 10/12/17 16:57 BP 159/75 10/12/17 16:40 Pulse Ox 95 10/12/17 16:40 Intake & Output 10/11/17 10/12/17 10/12/17 18:59 06:59 18:59 Intake Total 700 660 Output Total 1 2 Balance 699 658 Weight (lbs) 122.016 kg 122.47 kg Intake: Intake, IV Amount 300 Azithromycin 500 mg In 250 Sodium Chloride 0.9% 250 ml @ 250 mls/hr IV Q24H [facility] Rx#:[id number] cefTRIAXone 1 gm In 50 Sodium Chloride 0.9% 50 ml @ 100 mls/hr IV Q24HR [facility] Rx#:[id number] Oral 400 600 Other 60 Output: Stool 1 2 Other: # Voids 3 3 # Bowel Movements 2 Weight Source Bedscale Bedscale Active Medications: Current Medications Albuterol/Ipratropium (Duoneb Neb) 3 ml HHN Q2H PRN PRN Reason: Shortness of Breath or Wheeze Stop: 12/08/17 14:44 Last Admin: 10/09/17 22:40 Dose: 3 ml Albuterol/Ipratropium (Duoneb Neb) 3 ml HHN Q6HRT [facility] Stop: 12/08/17 18:59 Last Admin: 10/12/17 13:29 Dose: 3 ml Aspirin (Aspirin Chewable) 81 mg PO DAILY [facility] Stop: 12/10/17 08:59 Last Admin: 10/12/17 09:04 Dose: 81 mg Atorvastatin Calcium (Lipitor) 10 mg PO DAILY [facility] PRN Reason: Protocol Stop: 12/10/17 08:59 Last Admin: 10/12/17 09:04 Dose: 10 mg Enoxaparin Sodium (Lovenox) 40 mg SUBQ DAILY [facility] Stop: 12/08/17 20:29 Last Admin: 10/12/17 09:03 Dose: 40 mg Guaifenesin/Dextromethorphan (Robitussin Dm) 10 ml PO Q4H PRN PRN Reason: Cough Stop: 12/09/17 09:10 Last Admin: 10/12/17 16:13 Dose: 10 ml Azithromycin 500 mg/ Sodium (Chloride) 250 mls @ 250 mls/hr IV Q24H [facility] Stop: 12/08/17 16:59 Last Admin: 10/12/17 16:48 Dose: 250 mls/hr Ceftriaxone Sodium 1 gm/ (Sodium Chloride) 50 mls @ 100 mls/hr IV Q24HR [facility] Stop: 12/08/17 15:59 Last Admin: 10/12/17 16:13 Dose: 100 mls/hr Lactobacillus Rhamnosus (Culturelle 15b) 1 each PO DAILY [facility] Stop: 12/10/17 08:59 Last Admin: 10/12/17 09:04 Dose: 1 each Methylprednisolone Sodium Succinate (Solu-Medrol) 40 mg IVP Q12H [facility] Stop: 12/11/17 14:14 Last Admin: 10/12/17 14:17 Dose: Not Given Miscellaneous (Probiotic Screen) 1 ea [facility] PRN PRN PRN Reason: PROTOCOL Stop: 12/10/17 08:29 Mupirocin (Bactroban Oint) 1 appl NS BID [facility] Stop: 10/15/17 17:01 Last Admin: 10/12/17 16:13 Dose: 1 appl Pantoprazole Sodium (Protonix) 40 mg PO DAILY [facility] Stop: 12/10/17 08:59 Last Admin: 10/12/17 09:04 Dose: 40 mg General: Alert Cardiovascular: Regular rate Lungs: Other (rales) Assessment/Plan - Problem List Patient Problems: All Active Problems SEVERE DYSPNEA (Acute) - Assessment Assessment: Acute COPD exacerbation Elevated troponin r/o ACS Hyperlipidemia Obesity - Plan Plan: Continue Rocephine Solumedrol Bronchodilator Oxygen DVT prophylaxis PT OT DC Plan for SNIF discussed with the patient.
[2017-10-13] MEDS: Albuterol/Ipratropium Neb 3 ML AERS HHN SCH ×4 (01:28→19:00)
[2017-10-13] MEDS: methylPREDNISolone SS 40 mg Vial IVP SCH ×2 (02:00→13:35)
[2017-10-13] MEDS: Atorvastatin Calcium 10 MG TAB PO SCH (09:46)
[2017-10-13] MEDS: Aspirin 81mg Chewable Tab PO SCH (09:46)
[2017-10-13] MEDS: Pantoprazole 40 mg EC Tab PO SCH (09:46)
[2017-10-13] MEDS: Lactobacillus Rhamnosus GG 15 Billion CFU CAP.SPRINK PO SCH (09:46)
[2017-10-13] MEDS: Enoxaparin 40 mg/0.4 mL 0.4mL Syr SUBQ SCH (09:47)
[2017-10-13] MEDS: Guaifenesin DM 10 ML UDC PO PRN (11:54)
[2017-10-13] MEDS: Azithromycin 500 MG in Sodium Chloride 0.9% 250 ML IV SCH (16:26)
--- NOTE | 2017-10-13 21:01 | General Progress Note ---
Subjective - Review of Systems Service Date: 10/13/17 Subjective: L Patient seen and examined no new concern reported Objective - Results Result Diagrams: 10/10/17 04:25 10/12/17 06:30 Recent Labs: Laboratory Last Values WBC 15.9 Th/cmm (4.8-10.8) H 10/10/17 04:25 RBC 3.91 Mil/cmm (3.80-5.80) 10/10/17 04:25 Hgb 11.7 gm/dL (12-16) L 10/10/17 04:25 Hct 34.3 % (41.0-60) L 10/10/17 04:25 MCV 87.7 fl (80-99) 10/10/17 04:25 MCH 30.0 pg (27.0-31.0) 10/10/17 04:25 MCHC Differential 34.2 pg (28.0-36.0) 10/10/17 04:25 RDW 14.4 % (11.5-20.0) 10/10/17 04:25 Plt Count 325 Th/cmm (150-400) 10/10/17 04:25 MPV 8.7 fl 10/10/17 04:25 Neutrophils % 88.9 % (40.0-80.0) H 10/10/17 04:25 Lymphocytes % 9.0 % (20.0-50.0) L 10/10/17 04:25 Monocytes % 1.6 % (2.0-10.0) L 10/10/17 04:25 Eosinophils % 0.2 % (0.0-5.0) 10/10/17 04:25 Basophils % 0.3 % (0.0-2.0) 10/10/17 04:25 PT 11.1 SECONDS (9.5-11.5) 10/12/17 09:15 INR 1.07 (0.5-1.4) 10/12/17 09:15 Specimen Source Arterial 10/09/17 12:45 Sample Site Right Radial 10/09/17 12:45 pH 7.44 (7.35-7.45) 10/09/17 12:45 pCO2 42.0 mmHg (35.0-45.0) 10/09/17 12:45 pO2 83.0 mmHg (80.0-100.0) 10/09/17 12:45 HCO3 28.0 mEq/L (20.0-26.0) H 10/09/17 12:45 Base Excess 3.9 mEq/L (-3.0-3.0) H 10/09/17 12:45 O2 Saturation 97.0 % (92.0-100.0) 10/09/17 12:45 John Test PASS 10/09/17 12:45 Inspired O2 35 10/09/17 12:45 Critical Value PW 10/09/17 12:45 Sodium 136 mEq/L (136-145) 10/12/17 06:30 Potassium 3.5 mEq/L (3.5-5.1) 10/12/17 06:30 Chloride 101 mEq/L (98-107) 10/12/17 06:30 Carbon Dioxide 25.4 mEq/L (21.0-31.0) 10/12/17 06:30 Anion Gap 13.1 (7.0-16.0) 10/12/17 06:30 BUN 23 mg/dL (7-25) 10/12/17 06:30 Creatinine 1.0 mg/dL (0.7-1.3) 10/12/17 06:30 Est GFR ( Amer) > 60.0 ml/min (>90) 10/12/17 06:30 Est GFR (Non-Af Amer) > 60.0 ml/min 10/12/17 06:30 BUN/Creatinine Ratio 23.0 10/12/17 06:30 Glucose 249 mg/dL (70-105) H 10/12/17 06:30 Hemoglobin A1c % 5.2 % (4.0-6.0) 10/10/17 04:25 Whole Bld Lactic Acid 1.83 mmol/L (0.60-1.99) 10/09/17 12:56 Calcium 8.5 mg/dL (8.6-10.3) L 10/12/17 06:30 Total Bilirubin 0.7 mg/dL (0.3-1.0) 10/09/17 12:56 AST 17 U/L (13-39) 10/09/17 12:56 ALT 8 U/L (7-52) 10/09/17 12:56 Alkaline Phosphatase 65 U/L (34-104) 10/09/17 12:56 Troponin I 0.05 ng/mL (0.01-0.05) 10/10/17 12:15 B-Natriuretic Peptide 482.0 pg/mL (5.0-100.0) H 10/09/17 12:56 Total Protein 6.8 gm/dL (6.0-8.3) 10/09/17 12:56 Albumin 3.7 gm/dL (4.2-5.5) L 10/09/17 12:56 Globulin 3.1 gm/dL 10/09/17 12:56 Albumin/Globulin Ratio 1.2 (1.0-1.8) 10/09/17 12:56 Triglycerides 176 mg/dL (<150) H 10/11/17 06:50 Cholesterol 196 mg/dL (<200) 10/11/17 06:50 LDL Cholesterol Direct 144 mg/dL (75-193) 10/11/17 06:50 HDL Cholesterol 28 mg/dL (23-92) 10/11/17 06:50 TSH 0.37 uIU/ml (0.34-5.60) 10/11/17 06:50 - Physical Exam Vitals and I&O: Vital Signs Temp 96.8 F 10/13/17 16:19 Pulse 86 10/13/17 19:00 Resp 20 10/13/17 19:00 BP 160/70 10/13/17 16:19 Pulse Ox 97 10/13/17 19:00 Intake & Output 10/13/17 10/13/17 10/14/17 06:59 18:59 06:59 Intake Total 830 400 Output Total 0 Balance 830 400 Weight (lbs) 122.47 kg 122.47 kg Intake: Oral 800 400 Other 30 Output: Stool 0 Other: # Voids 3 3 # Bowel Movements 0 Stool Characteristics Soft Weight Source Bedscale Bedscale Active Medications: Current Medications Albuterol/Ipratropium (Duoneb Neb) 3 ml HHN Q2H PRN PRN Reason: Shortness of Breath or Wheeze Stop: 12/08/17 14:44 Last Admin: 10/09/17 22:40 Dose: 3 ml Albuterol/Ipratropium (Duoneb Neb) 3 ml HHN Q6HRT [facility] Stop: 12/08/17 18:59 Last Admin: 10/13/17 19:00 Dose: 3 ml Aspirin (Aspirin Chewable) 81 mg PO DAILY [facility] Stop: 12/10/17 08:59 Last Admin: 10/13/17 09:46 Dose: 81 mg Atorvastatin Calcium (Lipitor) 10 mg PO DAILY [facility] PRN Reason: Protocol Stop: 12/10/17 08:59 Last Admin: 10/13/17 09:46 Dose: 10 mg Enoxaparin Sodium (Lovenox) 40 mg SUBQ DAILY [facility] Stop: 12/08/17 20:29 Last Admin: 10/13/17 09:47 Dose: 40 mg Guaifenesin/Dextromethorphan (Robitussin Dm) 10 ml PO Q4H PRN PRN Reason: Cough Stop: 12/09/17 09:10 Last Admin: 10/13/17 11:54 Dose: 10 ml Azithromycin 500 mg/ Sodium (Chloride) 250 mls @ 250 mls/hr IV Q24H [facility] Stop: 12/08/17 16:59 Last Admin: 10/13/17 16:26 Dose: 250 mls/hr Ceftriaxone Sodium 1 gm/ (Dextrose) 50 mls @ 100 mls/hr IV Q24HR [facility] Stop: 12/08/17 15:59 Last Admin: 10/13/17 11:51 Dose: 100 mls/hr Lactobacillus Rhamnosus (Culturelle 15b) 1 each PO DAILY [facility] Stop: 12/10/17 08:59 Last Admin: 10/13/17 09:46 Dose: 1 each Methylprednisolone Sodium Succinate (Solu-Medrol) 40 mg IVP Q12H [facility] Stop: 12/11/17 14:14 Last Admin: 10/13/17 13:35 Dose: 40 mg Miscellaneous (Probiotic Screen) 1 ea [facility] PRN PRN PRN Reason: PROTOCOL Stop: 12/10/17 08:29 Mupirocin (Bactroban Oint) 1 appl NS BID [facility] Stop: 10/15/17 17:01 Last Admin: 10/13/17 16:27 Dose: 1 appl Pantoprazole Sodium (Protonix) 40 mg PO DAILY [facility] Stop: 12/10/17 08:59 Last Admin: 10/13/17 09:46 Dose: 40 mg General: Alert Cardiovascular: Regular rate Lungs: Other (rales) Assessment/Plan - Problem List Patient Problems: All Active Problems SEVERE DYSPNEA (Acute) - Assessment Assessment: Acute COPD exacerbation Elevated troponin ACS ruled out Hyperlipidemia Obesity - Plan Plan: Continue Rocephine Solumedrol Bronchodilator Oxygen DVT prophylaxis PT OT DC Plan for SNIF is in progress
[2017-10-14] MEDS: Albuterol/Ipratropium Neb 3 ML AERS HHN SCH ×3 (01:04→12:35)
[2017-10-14] MEDS: methylPREDNISolone SS 40 mg Vial IVP SCH ×2 (08:00→13:47)
[2017-10-14] MEDS: Lactobacillus Rhamnosus GG 15 Billion CFU CAP.SPRINK PO SCH (09:38)
[2017-10-14] MEDS: Atorvastatin Calcium 10 MG TAB PO SCH (09:38)
[2017-10-14] MEDS: Aspirin 81mg Chewable Tab PO SCH (09:38)
[2017-10-14] MEDS: Pantoprazole 40 mg EC Tab PO SCH (09:38)
[2017-10-14] MEDS: Enoxaparin 40 mg/0.4 mL 0.4mL Syr SUBQ SCH (09:38)
--- NOTE | 2017-10-14 19:48 | General Progress Note ---
Subjective - Review of Systems Service Date: 10/14/17 Subjective: L Patient seen and examined doing better denied any new complaints Objective - Results Result Diagrams: 10/10/17 04:25 10/12/17 06:30 Recent Labs: Laboratory Last Values WBC 15.9 Th/cmm (4.8-10.8) H 10/10/17 04:25 RBC 3.91 Mil/cmm (3.80-5.80) 10/10/17 04:25 Hgb 11.7 gm/dL (12-16) L 10/10/17 04:25 Hct 34.3 % (41.0-60) L 10/10/17 04:25 MCV 87.7 fl (80-99) 10/10/17 04:25 MCH 30.0 pg (27.0-31.0) 10/10/17 04:25 MCHC Differential 34.2 pg (28.0-36.0) 10/10/17 04:25 RDW 14.4 % (11.5-20.0) 10/10/17 04:25 Plt Count 325 Th/cmm (150-400) 10/10/17 04:25 MPV 8.7 fl 10/10/17 04:25 Neutrophils % 88.9 % (40.0-80.0) H 10/10/17 04:25 Lymphocytes % 9.0 % (20.0-50.0) L 10/10/17 04:25 Monocytes % 1.6 % (2.0-10.0) L 10/10/17 04:25 Eosinophils % 0.2 % (0.0-5.0) 10/10/17 04:25 Basophils % 0.3 % (0.0-2.0) 10/10/17 04:25 PT 11.1 SECONDS (9.5-11.5) 10/12/17 09:15 INR 1.07 (0.5-1.4) 10/12/17 09:15 Specimen Source Arterial 10/09/17 12:45 Sample Site Right Radial 10/09/17 12:45 pH 7.44 (7.35-7.45) 10/09/17 12:45 pCO2 42.0 mmHg (35.0-45.0) 10/09/17 12:45 pO2 83.0 mmHg (80.0-100.0) 10/09/17 12:45 HCO3 28.0 mEq/L (20.0-26.0) H 10/09/17 12:45 Base Excess 3.9 mEq/L (-3.0-3.0) H 10/09/17 12:45 O2 Saturation 97.0 % (92.0-100.0) 10/09/17 12:45 John Test PASS 10/09/17 12:45 Inspired O2 35 10/09/17 12:45 Critical Value PW 10/09/17 12:45 Sodium 136 mEq/L (136-145) 10/12/17 06:30 Potassium 3.5 mEq/L (3.5-5.1) 10/12/17 06:30 Chloride 101 mEq/L (98-107) 10/12/17 06:30 Carbon Dioxide 25.4 mEq/L (21.0-31.0) 10/12/17 06:30 Anion Gap 13.1 (7.0-16.0) 10/12/17 06:30 BUN 23 mg/dL (7-25) 10/12/17 06:30 Creatinine 1.0 mg/dL (0.7-1.3) 10/12/17 06:30 Est GFR ( Amer) > 60.0 ml/min (>90) 10/12/17 06:30 Est GFR (Non-Af Amer) > 60.0 ml/min 10/12/17 06:30 BUN/Creatinine Ratio 23.0 10/12/17 06:30 Glucose 249 mg/dL (70-105) H 10/12/17 06:30 Hemoglobin A1c % 5.2 % (4.0-6.0) 10/10/17 04:25 Whole Bld Lactic Acid 1.83 mmol/L (0.60-1.99) 10/09/17 12:56 Calcium 8.5 mg/dL (8.6-10.3) L 10/12/17 06:30 Total Bilirubin 0.7 mg/dL (0.3-1.0) 10/09/17 12:56 AST 17 U/L (13-39) 10/09/17 12:56 ALT 8 U/L (7-52) 10/09/17 12:56 Alkaline Phosphatase 65 U/L (34-104) 10/09/17 12:56 Troponin I 0.05 ng/mL (0.01-0.05) 10/10/17 12:15 B-Natriuretic Peptide 482.0 pg/mL (5.0-100.0) H 10/09/17 12:56 Total Protein 6.8 gm/dL (6.0-8.3) 10/09/17 12:56 Albumin 3.7 gm/dL (4.2-5.5) L 10/09/17 12:56 Globulin 3.1 gm/dL 10/09/17 12:56 Albumin/Globulin Ratio 1.2 (1.0-1.8) 10/09/17 12:56 Triglycerides 176 mg/dL (<150) H 10/11/17 06:50 Cholesterol 196 mg/dL (<200) 10/11/17 06:50 LDL Cholesterol Direct 144 mg/dL (75-193) 10/11/17 06:50 HDL Cholesterol 28 mg/dL (23-92) 10/11/17 06:50 TSH 0.37 uIU/ml (0.34-5.60) 10/11/17 06:50 - Physical Exam Vitals and I&O: Vital Signs Temp 98.7 F 10/14/17 16:00 Pulse 88 10/14/17 16:00 Resp 20 10/14/17 16:00 BP 177/64 10/14/17 16:00 Pulse Ox 96 10/14/17 16:00 Intake & Output 10/14/17 10/14/17 10/15/17 06:59 18:59 06:59 Intake Total 360 700 Balance 360 700 Weight (lbs) 122.47 kg 122.47 kg Intake: Intake, IV Amount 50 cefTRIAXone 1 gm In 50 Dextrose 5% 50 ml @ 100 mls/hr IV Q24HR [facility] Rx#: [id number] Oral 360 650 Other: # Voids 3 3 # Bowel Movements 1 1 Weight Source Bedscale Bedscale General: Alert Cardiovascular: Regular rate Lungs: Other (rales) Assessment/Plan - Assessment Assessment: Acute COPD exacerbation Elevated troponin ACS ruled out Hyperlipidemia Obesity - Plan Plan: SNIF DC plan patient is aware Continue current treatment
--- NOTE | 2017-10-15 04:44 | Cardiology ---
10/10/[address] Marissa Shine. M-MODE ECHOCARDIOGRAM: Mitral valve, anterior leaflet of mitral valve shows normal excursion, EF velocity. Posterior leaflet of the mitral valve shows normal excursion. Left ventricular posterior wall shows increased thickness, normal excursion. Interventricular septum shows increased thickness, normal excursion, hypertrophy of the left ventricle, ejection fraction 50%. Left atrium enlarged 5.3 cm. Aortic root shows normal dimension, normal excursion of aortic leaflets. CONCLUSION: Hypertrophy of the left ventricle, ejection fraction 50%. Left atrial enlargement. 2D ECHO: Long axis view showed normal-sized left ventricle with hypertrophy of the left ventricle. Left atrium enlarged. Aortic root shows normal dimension, normal excursion of aortic leaflets. Short axis view of mitral valve normal. Short axis view of aortic valve normal. Apical four chamber view showed normal-sized left ventricle with hypertrophy of the left ventricle. Left atrium enlarged. Right ventricular cavity, right atrium normal, no pericardial effusion. CONCLUSION: Hypertrophy of the left ventricle. Left atrial enlargement. Doppler study shows trace mitral regurgitation, moderate tricuspid regurgitation, right ventricular systolic pressure 52 mmHg with mild pulmonary hypertension. JOB# [id number]
== END 2017-10-14 16:15 | DRG 189 ==
LOC: ER 12:26 → MSI 14:56 → TELE 10-11 04:27
PROVIDERS: ADMIT Family Medicine; ATTEND Family Medicine
DX: J96.00 Acute respiratory failure, unspecified whether with hypoxia or hypercapnia (principal); J44.0 Chronic obstructive pulmonary disease with (acute) lower respiratory infection; J44.1 Chronic obstructive pulmonary disease with (acute) exacerbation; E66.9 Obesity, unspecified; B35.1 Tinea unguium; E78.5 Hyperlipidemia, unspecified; I27.20 Pulmonary hypertension, unspecified; M10.9 Gout, unspecified; R78.89 Finding of other specified substances, not normally found in blood; J20.9 Acute bronchitis, unspecified; I11.9 Hypertensive heart disease without heart failure; I08.1 Rheumatic disorders of both mitral and tricuspid valves; Z87.891 Personal history of nicotine dependence; Z68.35 Body mass index [BMI] 35.0-35.9, adult; Z79.899 Other long term (current) drug therapy; G47.33 Obstructive sleep apnea (adult) (pediatric)
CPT/HCPCS: 36415-UA; 36600-90; 71045-TC; 80048-TC; 80053-TC; 80061-TC; 82803-TC; 83036-90; 83605; 83880-TC; 84443-TC; 84484-TC; 85025-TC; 85610-TC; 93005; 93971-TC-RT; 94640; 94660; 94760; 96374; J0456; J0696; J1650; J2920; J2930; J7040; Z7610